=== PATIENT | male | born 1970 | race Caucasian/White ===

== ENCOUNTER → 2017-10-27 | Day surgery (SDC) | payer OTHER ==
[~2017-10-27] MED LIST: HYDROmorphone 2 MG/ML VIAL IV; IV RINGERS,LACTATED 1000ML 1,000 ML IV; LIDOCAINE 1% PF 2 ML VIAL. ID; LIDOCAINE 2% 100 MG/5 ML SYRINGE.; MIDAZOLAM HCL/PF 2 MG/2 ML VIAL. IV; MORPHINE SULFATE 4 MG/ML DISP.SYRIN. IV; ONDANSETRON PF 4 MG/2 ML VIAL. IV; PROCHLORPERAZINE 10 MG/2 ML VIAL. IV; PROPOFOL 40 ML IV; fentaNYL PF VIAL 100 MCG/2 ML VIAL IV
[2017-10-27] MEDS: IV RINGERS,LACTATED 1000ML 1,000 ML IV (12:27)
== END | disposition home or self-care (01) ==
LOC: ENDOS 11:59
DX: Z08 Encounter for follow-up examination after completed treatment for malignant neoplasm (principal); Z85.038 Personal history of other malignant neoplasm of large intestine; K64.0 First degree hemorrhoids; K62.89 Other specified diseases of anus and rectum; I10 Essential (primary) hypertension; F41.9 Anxiety disorder, unspecified; G62.9 Polyneuropathy, unspecified; Z90.49 Acquired absence of other specified parts of digestive tract; Z79.899 Other long term (current) drug therapy
CPT/HCPCS: 45380; 88305; J2704

== ENCOUNTER → 2018-11-21 | Day surgery (SDC) | payer OTHER ==
[~2018-11-21] MED LIST changes: +ATOR40TA59 PO; +GABA300C18 PO; -HYDROmorphone 2 MG/ML VIAL IV; -IV RINGERS,LACTATED 1000ML 1,000 ML IV; +LEVO88TA4 PO; -LIDOCAINE 1% PF 2 ML VIAL. ID; -LIDOCAINE 2% 100 MG/5 ML SYRINGE.; +LISI-334 PO; -MIDAZOLAM HCL/PF 2 MG/2 ML VIAL. IV; -MORPHINE SULFATE 4 MG/ML DISP.SYRIN. IV; -ONDANSETRON PF 4 MG/2 ML VIAL. IV; -PROCHLORPERAZINE 10 MG/2 ML VIAL. IV; -PROPOFOL 40 ML IV; +PROPOFOL 40 ML IV ONE; +SERT100T PO; -fentaNYL PF VIAL 100 MCG/2 ML VIAL IV
[2018-11-21 17:36] VITALS: BP 107/76
--- NOTE | 2018-11-22 11:36 | CONS ---
DATE OF CONSULTATION: REASON FOR CONSULTATION: Interval colonoscopy for colon cancer with previous metastatic disease. HISTORY OF PRESENT ILLNESS: This is a 48-year-old male whose past medical history is significant for colon cancer, anxiety, high blood pressure, hyperlipidemia, hypothyroidism is seen for interval colon exam. His latest CEA level is 2.7. Interval colonoscopy last year was unrevealing for recurrent disease and imaging had raised the possibility of a liver lesion, which has been followed and it has been negative. Weight and appetite is stable. There is no additional complaint. PAST MEDICAL HISTORY: Colon cancer, hyperlipidemia, hypertension. ALLERGIES: None. MEDICATIONS: Include atorvastatin, gabapentin, levothyroxine, lisinopril, and sertraline. FAMILY HISTORY: Significant for colon cancer with the uncle, colon polyps in a sister. SOCIAL HISTORY: Nonsmoker. Social drinker. REVIEW OF SYSTEMS: Per records. PHYSICAL EXAMINATION: GENERAL: A well-nourished, well-developed male, who is alert, cooperative, in no acute distress. VITAL SIGNS: Pulse 75, respirations 18. HEENT: Normocephalic, atraumatic head. Pupils and extraocular movements not tested. Sclerae anicteric. NECK: Supple. LUNGS: Clear. CARDIOVASCULAR: Reveals an S1, S2 without S3, S4 or appreciable murmur. ABDOMEN: Soft abdomen, normoactive bowel sounds, without appreciable hepatosplenomegaly. EXTREMITIES: Reveals no cyanosis, clubbing, edema. IMPRESSION AND PLAN: History of colon cancer. Interval colonoscopy is recommended. Risks and benefits have been discussed with the patient including the risk of hemorrhage and perforation and he is willing to proceed. NILE CASON MD DR: TANNER/eliot JOB#: [id number] / [id number] Cecilia Valenzuela
== END | disposition home or self-care (01) ==
LOC: SURG 16:00
PROVIDERS: ATTEND Internal Medicine Gastroenterology
DX: Z08 Encounter for follow-up examination after completed treatment for malignant neoplasm (principal); K64.0 First degree hemorrhoids; Z85.038 Personal history of other malignant neoplasm of large intestine; F41.9 Anxiety disorder, unspecified; J45.909 Unspecified asthma, uncomplicated; E78.00 Pure hypercholesterolemia, unspecified; E03.9 Hypothyroidism, unspecified; Z72.89 Other problems related to lifestyle; Z79.899 Other long term (current) drug therapy; Z90.49 Acquired absence of other specified parts of digestive tract
CPT/HCPCS: 45378; J2704